=== PATIENT | female | born 1980 | race Caucasian/White ===

== ENCOUNTER 2023-05-13 04:41 | Outpatient (CLI) | payer BC, SELFPAY ==
[2023-05-13 13:29] LABS: Abs Immature Grans 0.03 10^3/uL (0.0-0.06); Absolute Basophil Count 0.09 10^3/uL (0.0-0.2); Absolute Eosinophil Count 0.28 10^3/uL (0.0-0.7); Absolute Lymphocyte Count 2.82 10^3/uL (1.2-3.4); Absolute Monocyte Count 0.77 10^3/uL (0.1-0.8); Absolute Neutrophil Count 7.07 10^3/uL (1.2-6.7); Basophils % 0.8; Eosinophils % 2.5; HCT 46.7 % (36.0-46.0); Immature Grans % 0.3; Lymphocytes % 25.5; MCHC 32.1 % (32.0-36.0); MCV 81 fL (80-95); MPV 8.7 fL (8.0-11.0); Neutrophils % 63.9; Platelet Count 330 10^3/uL (130-400); RBC 5.77 10^6/uL (3.93-5.22); RDW 14.3 % (11.7-14.6); RDW-SD 41.8 fL; WBC 11.06 10^3/uL (4.4-10.8)
== END 2023-05-13 04:42 | disposition home or self-care (01) ==
LOC: LBO 05:09
PROVIDERS: PCP Family Medicine; Visit Provider Obstetrics & Gynecology
DX: Z01.818 Encounter for other preprocedural examination (principal)
CPT/HCPCS: 36415; 86850; 86900; 86901; 85025

== ENCOUNTER 2023-05-15 08:02 | Day surgery (SDC) | payer BC, SELFPAY ==
[2023-05-15] VITALS (9 sets, daily range): BP systolic 107–137; BP diastolic 64–81; PULSE 75–100; RESP 16–22; TEMP 36.1–37; O2SAT 94–99; BMI 30.9
--- NOTE | 2023-05-15 08:46 | ANES.PREOP_ITS ---
General Info Date of Service Date Performed: 05/15/23 Height: 5 ft 6 in Weight: 86.9 kg Body Mass Index (BMI): 30.9 Surgical Procedure: Operation Date: 05/15/23 10:40 Proposed Procedure Side Surgeon p Salpingectomy Laparoscopic Bilateral Shante Arias DO Meds Allergies and Home Medications Allergies Allergy/AdvReac Type Severity Reaction Status Date / Time No Known Allergies Allergy Unverified 05/15/23 08:50 Home Medication Medication Instructions Recorded Unknown [No Known Home Meds] 05/13/23 Current Visit Medications: Current Medications Generic Name Dose Route Start Last Admin Trade Name Freq PRN Reason Stop Dose Admin Ringer's Solution 1,000 mls @ 125 mls/hr 05/15/23 06:00 IV 05/15/23 23:59 INFUSION LUIS ANTONIO IV Miscellaneous Supplies 1 each 05/15/23 06:00 Iv Access IV 05/15/23 23:59 DIRECTED LUIS ANTONIO Sodium Chloride 0 ml 05/15/23 06:00 Normal Saline Flush 10 Ml Syr IV 05/15/23 23:59 PRN PRN Sodium Chloride 0 ml 05/15/23 06:00 Normal Saline 10 Ml Vial IJ 05/15/23 23:59 DIRECTED PRN Sterile Water 0 ml 05/15/23 06:00 Water,Injection,Sterile 10 Ml Vial IJ 05/15/23 23:59 DIRECTED PRN PFSH Active Problems Active Problems: Problem Status Onset Code Pre-op exam Z01.818 Contraceptive management Z30.9 Umbilical hernia K42.9 Dysfunctional uterine bleeding N93.8 Encounter for IUD removal Z30.432 IUD migration T83.32XA Medical History Medical History Eczema Galactorrhea Mastitis in female Surgical History Surgical History Hernia repair Epigastric Hernia Repair (02/21/17) [facility][1] DR. GIAN MORRELL Cholecystectomy 2013 Tobacco Smoking/Tobacco Use Status: Current every day Tobacco Type: cigarettes Smoking cigarettes per day: 20 Years smoked: 21 Alcohol Alcohol Intake: former Substance Use Substance use: Never Prental History History 3 Para 3 Hx # Term Pregnancies 3 Multiple births Hx # Pregnancies Ectopic pregnancies AB induced Hx Number of Living Children 2 AB spontaneous Vital Signs and Lab Results Vital Signs Most Recent Vital Signs in EMR: Most Recent Vital Signs Temp Pulse Resp BP Pulse Ox 37 C 100 H 20 114/81 95 05/15/23 08:33 05/15/23 08:33 05/15/23 08:33 05/15/23 08:33 05/15/23 08:33 Point of Care Results Point of Care Results: POC- Test(urine) Negative 05/15/23 08:33 Lab Results Blood Type / Crossmatch: Patient ABO/Rh A Positive 05/13/23 Antibody Screen NEGATIVE 05/13/23 Complete Blood Count: White Blood Count 11.06 10^3/uL (4.4-10.8) H 05/13/23 13:20 Red Blood Count 5.77 10^6/uL (3.93-5.22) H 05/13/23 13:20 Hemoglobin 15.0 g/dL (11.2-15.7) 05/13/23 13:20 Hematocrit 46.7 % (36.0-46.0) H 05/13/23 13:20 Platelet Count 330 10^3/uL (130-400) 05/13/23 13:20 Complete Metabolic Panel: No Data to Display Liver Function Panel: No Data to Display Coagulation Panel: No Data to Display Cardiac Panel: No Data to Display Arterial Blood Gas: No Data to Display Venous Blood Gas: No Data to Display Pancreas Panel: No Data to Display Thyroid Panel: No Data to Display Infectious Disease: No Data to Display Blood Cultures: No Data to Display Toxicology Panel: No Data to Display Panel: No Data to Display Anesthesia Assessment and Plan Anesthesia History Personal History: No History of Anesthesia Complications Family History: No Family History of Anesthesia Complications Exercise Tolerance Exercise Tolerance: Metabolic Equivalents>4 Pertinent Negatives Pertinent Negatives: No Symptoms of GERD, No Major Cardiovascular Symptoms or Complaints and No Major Pulmonary Symptoms or Complaints Cardiac & Pulmonary Exam Cardiac Exam: Normal S1/S2 Heart Sounds Pulmonary Exam: Rhonchi Present (Diminished, rhonchi bilateral lower lobes) Implantable Cardiac Device Does patient have a Pacemaker or an ICD?: No Airway Exam Known Difficult Airway: No Mallampati Class: 2 Mouth Opening: Normal (> 3cm) Thyromental Distance: Greater than 3 cm Neck Range of Motion: Full ROM Neck Circumference: Normal Teeth Condition: Generalized Poor Dentition ASA Classification ASA Score: ASA 2 Emergency Case?: No NPO Status NPO Status: NPO Clears >2 hours, Solids >8 hours Status Status: Negative HCG Anesthesia Plan Resuscitation Status: Full Code Anesthesia Technique: General Anesthesia Airway Planned: Endotracheal Tube Monitors Used: Standard Monitors and SedLine
[2023-05-15] MEDS: Lactated Ringers 1,000 ML 125 ML IV (08:47)
[2023-05-15] MEDS: Bupivacaine 0.25% Pres-Free 30 ML VIAL (09:47)
--- NOTE | 2023-05-15 09:50 | FALL_PTH ---
PATIENT: Jacki Lamas LOC: [facility] U#:[id number] AGE/SX: 42/F ROOM: RE05/15/[address]: Shante Arias DO : 1980 BED: DIS: 05/15/2023 SPEC #: [id number] RECD: 05/15/23 11:19 STATUS: GAL RE #: [id number] CAROLYN: 05/15/23 09:[address]: Shante Arias DEPT: Surgical Specimen RECD BY: Kerri Mcfarlane ENTERED: 05/15/23 11:20 SP TYPE: Fall OTHR DR: Remi Feliz Tissues: 1 - FALLOPIAN TUBE (STERILIZATION) 2 - FALLOPIAN TUBE (STERILIZATION) Procedures: GROSS AND MICRO LEVEL 2 Comments: [id number]
--- NOTE | 2023-05-15 10:04 | ROE_ITS ---
Date of service: 05/15/23 Time of Service: 10:04 Operative Note Operative Note DATE OF PROCEDURE: 05/15/23 PRE-OP DIAGNOSIS: Undesired fertility POST-OP DIAGNOSIS: same PROCEDURE: Laparoscopic bilateral salpingectomy SURGEON: Shante Arias ASSISTING SURGEON: Jennifer Chacon ANESTHESIA TYPE: Local By Surgeon and General LMA/ETT Refer to Anesthesia Record ESTIMATED BLOOD LOSS: 5 PATHOLOGY: other (1. Right fallopian tube 2. Left fallopian tube) COMPLICATIONS: None Patient was transported to: PACU Patient's condition: stable Indications: Undesired fertility Findings: Normal-appearing fallopian tubes and ovaries. Normal size uterus. Small, 3 cm subserosal fibroid in the left lower uterine segment. No evidence of abdominal or umbilical hernia. Procedure Description: After full informed consent was obtained, patient was taken the operating suite with an IV running. She was placed in the dorsal supine position and endotracheal intubation performed for the administration of general anesthesia with ease. Timeout was performed and the patient was positioned. She was positioned in the dorsal supine position in yellowfin stirrups and prepped and draped in usual sterile fashion. Exam under anesthesia revealed a uterus that was midline and mobile. She had pneumatic compression stockings for DVT prophylaxis. No surgical site infection prophylaxis was warranted. Bladder had been previously emptied prior to presentation to the OR. A speculum was inserted into the vaginal vault and cervix identified. [employer] uterine manipulator was placed through the cervical os for intraoperative uterine manipulation and the speculum was removed. Attention was then turned to the abdomen where after infiltration of quarter percent Marcaine a small infraumbilical skin incision was made. The intra- abdominal wall was elevated with sharp towel clips and a varies needle inserted. Peritoneum created with a maximum pressure of 15 mmHg of CO2 gas without difficulty. At this point a 12 mm Optiview bladeless trocar was placed under direct visualization into the abdomen. A second and third right and left lower quadrant trocar site was placed after infiltration of quarter percent Marcaine with a 5 mm port under direct visualization. At this point the uterus was elevated and the right fallopian tube identified from the fimbriated end to the uterus. This was cautery transected and removed through the 12 mm port. Leann lar procedure was carried out on the left fallopian tube. Both pedicles were hemostatic. At this point the procedure was terminated. CO2 gas was released. Pedicles again reinspected and noted to be hemostatic. Under direct visualization the 5 mm ports were removed, followed by the 12 mm port. The infraumbilical fascial incision was closed using 0 Vicryl suture in a [id number] fashion and the skin edge reapproximated with 4-0 undyed Monocryl. Steri-Strips and sterile dressings were placed. [employer] uterine manipulator was removed and the patient returned to the dorsal supine position. She woke from anesthesia without difficulty and was returned to the postanesthesia care unit in stable condition. EBL: 5 mL Complications: None apparent Pathology: 1. Right fallopian tube 2. Left fallopian tube Fluids: Crystalloid per anesthesia.
--- NOTE | 2023-05-15 12:21 | W.ANESPOSTOP ---
Postoperative Evaluation Date, Time and Location Date Performed: 05/15/23 Time Performed: 11:58 Patient Location: Day Surgery Unit Vital Signs Most Recent Imported Vital Signs: Most Recent Vital Signs Temp Pulse Resp BP Pulse Ox 36.5 C 81 16 107/71 98 05/15/23 11:29 05/15/23 11:29 05/15/23 11:29 05/15/23 11:29 05/15/23 11:29 Pain Score Most Recent Pain Score: Most Recent Pain Score Pain Level 1 05/15/23 11:29 Assessment Mental Status: Awake (Alert & Oriented to Patient Baseline) Airway and Respiratory Function: Patent airway with normal (patient baseline) respiratory exam Cardiovascular Function: Hemodynamically Stable Hydration Status: Adequately Hydrated Nausea & Vomiting: No Nausea or Vomiting Pain: Pain is tolerable per patient Peripheral Nerve Block: Patient did not receive a nerve block
== END 2023-05-15 12:20 | disposition home or self-care (01) ==
PROVIDERS: PCP Family Medicine; Visit Provider Obstetrics & Gynecology
PROC: (CPT 58661; principal; 2023-05-15 10:30)
DX: Z30.2 Encounter for sterilization (principal); F17.210 Nicotine dependence, cigarettes, uncomplicated
CPT/HCPCS: 58661; 81025; 88302; J0665; J1100; J1885; J2001; J2250; J2371; J2405; J2704; J3010